=== PATIENT | female | born 1955 | race Caucasian/White ===

== ENCOUNTER 2017-04-27 12:04 | Day surgery (SDC) | payer BC ==
[~2017-04-27] VITALS: Ht 167.6 cm; Wt 49.9 kg
--- NOTE | ~2017-04-27 | OP ---
Record Of Operation [facility] [address] [place]. [address] NAME: SHERRILL HUFFMAN : 57 STATUS : [facility]#: [id number] AGE: 61 ADM/REG DATE : 04/27/17 MR#: [id number] REPORT SERV DATE: 04/27/17 DICTATED BY: ZHOU JONES DATE: 04/27/17 REPORT STATUS : Draft TRANSCRIBED BY: MODL DATE: 04/27/17 DATE OF PROCEDURE: 04/27/2017 PROCEDURE: 1. A 2 cm excision of squamous cell carcinoma of the nasal bridge with layered closure. 2. Shave excision of three facial lesions. PREOPERATIVE DIAGNOSES: 1. 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 2. Benign facial lesions. POSTOPERATIVE DIAGNOSES: 1. 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 2. Benign facial lesions. ANESTHESIA: General via LMA. COMPLICATIONS: None. FINDINGS: The patient was taken the OR and placed in supine position. The nasal bridge was injected with 1% Xylocaine with epinephrine. Wide local excision was made approximately 2 cm in a fusiform section around the biopsy site. Frozen section showed a very small residual area of squamous cell carcinoma with all margins free. Undermining was performed. A deep layered closure was performed with 4-0 chromic suture. Cutaneous closure with 5 0 chromic in a horizontal mattress fashion performed. The patient had an area of erythema on the right side of her nasal bridge as well as two lesions on her forehead, which were shaved with a 15C blade. Antibiotic ointment was placed over the incision. The patient was awakened and taken to recovery in stable condition. DEON/MISAEL Zhou Jones M.D. / [id number] CC: Davonte Dent M.D.
[~2017-04-27 12:04] MED LIST: ANOROELLIPTA INH; ASAB PO; ATEN100 PO; ESTRACE1 MG PO; IPRATROPIUM/ALBUTERO INH; NORCO1 TAB PO; PR25 PO; PRILO PO; PROAIR HFA INH; RANITIDINE300 MG PO; SYN.05 PO; VYVANSE70 MG PO; XANAX1 MG PO; ZOL100 PO
== END 2017-04-27 17:24 | disposition home or self-care (01) ==
LOC: SDC 12:04
PROVIDERS: Otolaryngology
PROC: 0HB1XZZ Excision of Face Skin, External Approach (ICD-10-PCS; 2017-04-27)
PROC: 09QK0ZZ Repair Nasal Mucosa and Soft Tissue, Open Approach (ICD-10-PCS; principal; 2017-04-27 13:30)
DX: C44.321 Squamous cell carcinoma of skin of nose (principal); L98.8 Other specified disorders of the skin and subcutaneous tissue; J44.9 Chronic obstructive pulmonary disease, unspecified; K21.9 Gastro-esophageal reflux disease without esophagitis; F41.9 Anxiety disorder, unspecified; F32.9 Major depressive disorder, single episode, unspecified; R00.0 Tachycardia, unspecified; Z79.818 Long term (current) use of other agents affecting estrogen receptors and estrogen levels; Z87.891 Personal history of nicotine dependence; Z79.899 Other long term (current) drug therapy; Z88.5 Allergy status to narcotic agent; Z90.49 Acquired absence of other specified parts of digestive tract; Z90.710 Acquired absence of both cervix and uterus; Z98.890 Other specified postprocedural states
CPT/HCPCS: 80048; 85014; 85018; 88305; 88331; 93005; A9270-GY; J0690; J1170; J2250; J2405; J3010